=== PATIENT | male | born 1970 | race Caucasian/White ===

== ENCOUNTER 2017-10-23 12:34 | Emergency (ER) | payer OTHER ==
[~2017-10-23] VITALS: Ht 180.3 cm; Wt 81.7 kg
[~2017-10-23 12:34] MED LIST: KEFLEX500 MG PO; MEDROLDOSEPACK PO; PROAIR HFA8.5 GM INH; PROMETHAZINE D480 ML PO; TESSALON PERLE100 MG PO; ZPAK PO
[2017-10-23 12:42] VITALS: BP 154/99
[2017-10-23] MEDS ORDERED: TRIAMCINOLONE A80 G2 TOP (12:53)
== END 2017-10-23 12:58 | disposition home or self-care (01) ==
LOC: M.ERS 12:34
DX: L57.8 Other skin changes due to chronic exposure to nonionizing radiation (principal); F17.200 Nicotine dependence, unspecified, uncomplicated

== ENCOUNTER 2018-07-30 10:53 | Emergency (ER) | payer OTHER ==
[~2018-07-30] VITALS: Ht 182.9 cm; Wt 83.9 kg
[~2018-07-30 10:53] MED LIST changes: +TRIAMCINOLONE A80 G2 TOP
[2018-07-30] MEDS ORDERED: IBUPROFEN 600600 M1 PO (11:07)
[2018-07-30 13:08] LABS: INFLUENZA A ANTIGEN None Detected (None Detect); INFLUENZA B ANTIGEN None Detected (None Detect)
[2018-07-30] MEDS ORDERED: AZITHROMYCIN500 MG PO (13:15)
[2018-07-30] MEDS ORDERED: PROMETHAZINE-P118 M1 PO (13:15)
[2018-07-30] MEDS ORDERED: PREDNISONE 10 M10 MG PO (13:15)
[2018-07-30] MEDS ORDERED: VENTOLIN HFA 1818 GM INH (13:15)
[2018-07-30 13:27] VITALS: BP 148/84
== END 2018-07-30 13:27 | disposition home or self-care (01) ==
LOC: M.ERS 10:53
PROVIDERS: Nurse Practitioner Family
DX: J20.9 Acute bronchitis, unspecified (principal); F17.200 Nicotine dependence, unspecified, uncomplicated

== ENCOUNTER 2019-02-25 14:06 | Emergency (ER) | payer OTHER ==
[~2019-02-25] VITALS: Ht 180.3 cm; Wt 83.9 kg
[~2019-02-25 14:06] MED LIST changes: +AZITHROMYCIN500 MG PO; +IBUPROFEN 600600 M1 PO; +PREDNISONE 10 M10 MG PO; +PROMETHAZINE-P118 M1 PO; +VENTOLIN HFA 1818 GM INH
[2019-02-25] MEDS ORDERED: BACTRIM DS TAB1 EAC1 PO (15:48)
[2019-02-25 15:54] VITALS: BP 135/85
== END 2019-02-25 15:56 | disposition home or self-care (01) ==
LOC: M.ERS 14:06
DX: L02.413 Cutaneous abscess of right upper limb (principal); F17.210 Nicotine dependence, cigarettes, uncomplicated; Z90.49 Acquired absence of other specified parts of digestive tract